=== PATIENT | male | born 1960 | race Caucasian/White ===

== ENCOUNTER → 2017-07-06 | Outpatient (CLI) | payer OTHER | END | disposition home or self-care (01) | LOC: PCVCIMAG 14:06 | DX: I10 Essential (primary) hypertension (principal); R06.00 Dyspnea, unspecified; E78.5 Hyperlipidemia, unspecified | CPT/HCPCS: 76770; 93325; 93351; 93975 ==

== ENCOUNTER → 2019-03-10 | Outpatient (CLI) | payer OTHER ==
--- NOTE | 2019-03-10 14:19 | PCVCIMAG ---
APPROVED REPORT Indications Bruit Risk Factors Family History: Doppler Spectral Velocity Analysis PSV / EDVPSV / EDV ECA (R) 106 / 14 cm/sECA (L) 132 / 18 cm/s dICA (R) 56 / 18 cm/sdICA (L) 71 / 27 cm/s Levi (R) 60 / 19 cm/smICA (L) 79 / 31 cm/s pICA (R) 36 / 9 cm/spICA (L) 58 / 13 cm/s Bulb (R) 90 / 19 cm/sBulb (L) 94 / 19 cm/s dCCA (R) 102 / 17 cm/sdCCA (L) 129 / 26 cm/s mCCA (R) 89 / 18 cm/smCCA (L) 121 / 26 cm/s Vert (R) 50 / 15 cm/sVert (L) 63 / 11 cm/s ICA/CCA 0.59ICA/CCA 0.61 Basic Measurements Blood Pressure: Pulses: Right Left RightLeft Brachial(Sitting) 146/72nuRn711/80mmHgTemporal Real Time B-Mode Imaging Vert. (R)AntegradeVert. (L)Antegrade Findings RIGHT CAROTID: The carotid bulb has minimal plaque. The proximal internal carotid artery shows no significant stenosis. The common carotid artery shows no significant stenosis. The external carotid artery shows no significant stenosis. LEFT CAROTID: The carotid bulb has minimal plaque. The proximal internal carotid artery shows no significant stenosis. The common carotid artery shows no significant stenosis. The external carotid artery shows no significant stenosis. Conclusion No significant stenosis of the right internal carotid artery with minimal plaque. No significant stenosis of the left internal carotid artery with minimal plaque.
== END | disposition home or self-care (01) ==
LOC: PCVCIMAG 13:20
PROVIDERS: ATTEND Internal Medicine Cardiovascular Disease
DX: R09.89 Other specified symptoms and signs involving the circulatory and respiratory systems (principal); E78.01 Familial hypercholesterolemia
CPT/HCPCS: 93880

== ENCOUNTER → 2019-03-31 | Outpatient (CLI) | payer OTHER ==
--- NOTE | 2019-03-31 18:33 | PCVCIMAG ---
APPROVED REPORT Study performed: 03/31/2019 14:25:41 Exam: Stress Echocardiogram Indication: Hypertension, Hyperlipidemia, CAD by coronary calcium Patient Location: Echo lab Stress Nurse: Dolly Robertson RN Room #: 2 Status: routine Ht: 5 ft 9 in HR: 73 bpm BP: 130/78 mmHg Rhythm: NSR Medical History Medical History: HTN, Hyperlipidemia Cardiac Risk Factors: FHX of CAD, Hyperlipidemia, HTN Previous Cardiac Procedures: none Pretest Chest Pain Characteristics: No chest pain Exercise History: Physically active Procedure The patient underwent an Exercise Stress Test using the Jose M Protocol. Blood pressure, heart rate, and EKG were monitored. An Echocardiogram was performed by medical technician in four stages in quad fashion. At peak stress, four selected images were obtained and placed side by side with resting images for comparison. Stress Test Details Stress Test: Exercise stress testing was performed using a Jose M protocol. HR Resting HR: 73 bpmMax Heart Rate (APMHR): 161 bpm Max HR Achieved: 162 bpmTarget HR (85% APMHR): 136 bpm % of APMHR: 100 Recovery HR: 98 bpm HR response to stress: Normal HR response to stress BP Resting BP: 130/78 mmHg Max BP: 164/78 mmHg Recovery BP: 138/74 mmHg BP response to stress: Normal blood pressure response to stress. ECG Resting ECG: Sinus Rhythm Stress ECG: Sinus Rhythm, NSSTT changes Maximum ST Deviation: -1.10 mm Arrhythmia: occ PVCs Recovery ECG: Sinus Rhythm Recovery ST Change: Non-ischemic Recovery ST Deviation: -0.10 mm Recovery Arrhythmia: None Clinical Reason for Termination: Maximal effort Stress Symptoms: fatigue,dyspnea Exercise duration: 9 min 16 sec Highest Stage Achieved: Stage 4: 4.2 mph at 16% grade. Exercise capacity: 10.9 METs Overall Exercise Capacity for Age: Good Scale: Active Angina Score: None No complications. Stress ECG Conclusion Lockett Treadmill Score is 14.5 which is Low risk. Pre-Stress Echo The resting Echocardiogram showed normal left ventricular contractility with an estimated Ejection Fraction of about 55-60%. Normal wall motion in all segments on baseline images. Post-Stress Echo The stress Echocardiogram showed normal left ventricular contractility with an estimated Ejection Fraction of about 65-70%. Normal augmentation of wall motion in all segments on post stress images. Clinical No clinical or ECG evidence for ischemia. Conclusion Clinical Response: Non-ischemic Exercise Capacity: Superior Stress ECG Response: Non-ischemic Stress Echo Images: Non-ischemic
== END | disposition home or self-care (01) ==
LOC: PCVCIMAG 14:22
PROVIDERS: ATTEND Internal Medicine Cardiovascular Disease
DX: I25.10 Atherosclerotic heart disease of native coronary artery without angina pectoris (principal); E78.5 Hyperlipidemia, unspecified; I10 Essential (primary) hypertension; E78.01 Familial hypercholesterolemia; R93.1 Abnormal findings on diagnostic imaging of heart and coronary circulation
CPT/HCPCS: 93325; 93351